=== PATIENT | female | born 1995 | race African-American/Black ===

== ENCOUNTER 2017-01-20 20:45 | Emergency (ER) | payer OTHER ==
[~2017-01-20] VITALS: Ht 165.1 cm; Wt 65.8 kg
--- NOTE | ~2017-01-20 | EKG ---
[address] [place] [address] ELECTROCARDIOGRAM REPORT Name: TON GARRISONNILDA Mahan [id number] Admission: 01/20/17 Attend Phys: Discharge: 01/20/17 Date of : [birth year] Report #: [id number] THIS REPORT FOR: //name// [facility] ED Test Date: 2017-01-20 Test Time: 21:49:04 Pat Name: NOMAN GARRISON Department: Room: Gender: F Yoke Presser: MZOOK : 1995 Requested By: Faith Zhu Order Number: [id number] MD: Tom Galeana Measurements Intervals [place] Rate: 93 P: 57 VA: 133 QRS: 9 QRSD: 95 T: 39 QT: 356 QTc: 443 Interpretive Statements Sinus rhythm RSR' in V1 or V2, right VCD or RVH Baseline wander in lead(s) V1 No previous ECG available for comparison Electronically Signed On 01-22-2017 7:41:46 CDT by Tom Galeana [email or web address] <ELECTRONICALLY SIGNED> By: Tom Galeana MD, [facility] 01/22/17 0741 [id number] 48 Tom Galeana MD, [facility] /EPI
[2017-01-20 21:32] LABS: URINE BILIRUBIN NEGATIVE (Negative); URINE BLOOD 1+ (Negative); URINE COLOR YELLOW; URINE GLUCOSE-RANDOM* 3+ (Negative); URINE KETONES NEGATIVE (Negative); URINE LEUKOCYTES-REFLEX 1+ (Negative); URINE PROTEIN (DIPSTICK) 1+ (Negative); URINE UROBILINOGEN 0.2 E.U./dl (0.2-1.0)
[2017-01-20 21:36] LABS: ABSOLUTE NEUTROPHILS 3.7 thou/uL (1.4-8.2); BASOPHILS 1.2 % (0.0-2.0); HEMATOCRIT 35.6 % (37.0-47.0); HEMOGLOBIN 12.2 gm/dL (12.0-15.0); LYMPHOCYTES 33.3 % (24.0-44.0); MCH 28.3 pg (26.0-34.0); MCHC 34.3 g/dL (28.0-37.0); MCV 82.6 fL (80.0-100.0); PLATELET COUNT 279 thou/uL (150-400); POLYS 54.5 % (36.0-66.0); RBC 4.31 mil/uL (4.20-5.00); RDW 12.5 % (10.5-14.5); WBC 6.7 thou/uL (4.0-11.0)
[2017-01-20 21:37] LABS: MANUAL DIFF NO
[2017-01-20 21:41] LABS: AMP/METHAMP Negative (Negative); BARBITURATES Negative (Negative); BENZODIAZEPINES Negative (Negative); CASTS None Seen /LPF (None Seen); COCAINE Negative (Negative); CRYSTALS None Seen /LPF (None Seen); METHADONE Negative (Negative); OPIATES Negative (Negative); PCP Negative (Negative); SQUAMOUS 4-10 Moderate /LPF (0-3); THC Negative (Negative)
[2017-01-20 21:42] LABS: URINE RBC 0-2 Rare /HPF (0-2); URINE WBC-REFLEX 0-5 Rare /HPF (0-5)
[2017-01-20 21:44] LABS: ANION GAP 6 mmol/L (7-16); BUN 7 mg/dL (7-18); CHLORIDE 101 mmol/L (98-107); CO2 28 mmol/L (21-32); CREATININE 0.8 mg/dL (0.6-1.0); GLUCOSE 223 mg/dL (74-106); POTASSIUM 4.1 mmol/L (3.5-5.1); SODIUM 135 mmol/L (136-145)
[2017-01-20 21:52] LABS: APTT 25.9 Seconds (24.5-32.8)
[2017-01-20 21:55] LABS: ALBUMIN 3.7 g/dL (3.4-5.0); ALKALINE PHOSPHATASE 128 U/L (46-116); NT-PRO BRAIN NAT PEPTIDE 23 pg/mL (<300); SGOT 9 U/L (15-37); SGPT 17 U/L (30-65); TOTAL BILIRUBIN 0.5 mg/dL (<0.1-1.0); TOTAL PROTEIN 7.4 g/dL (6.4-8.2); TROPONIN-I < 0.04 ng/mL (<0.04-0.07)
[2017-01-20] MEDS ORDERED: CLONIDINE0.1 PO (22:12)
[2017-01-20 22:32] VITALS: BP 137/95
== END 2017-01-20 22:40 | disposition home or self-care (01) ==
LOC: ER 20:45
PROVIDERS: Emergency Medicine
DX: I10 Essential (primary) hypertension (principal); R00.0 Tachycardia, unspecified; E10.8 Type 1 diabetes mellitus with unspecified complications

== ENCOUNTER 2018-02-11 12:16 | Emergency (ER) | payer OTHER ==
[~2018-02-11] VITALS: Ht 162.6 cm; Wt 69.4 kg
[~2018-02-11 12:16] MED LIST: CLONIDINE0.1 PO
[2018-02-11] MEDS ORDERED: HUMALOG100 UNIT/1 SUBQ (12:36)
[2018-02-11] MEDS ORDERED: LISINOPRIL10 MG PO (12:36)
[2018-02-11] MEDS ORDERED: LANTUS100 UNIT/M SUBQ (12:37)
[2018-02-11 13:26] LABS: ABSOLUTE NEUTROPHILS 5.2 thou/uL (1.4-8.2); BASOPHILS 0.9 % (0.0-2.0); EOSINOPHILS 1.8 % (0.0-3.0); HEMATOCRIT 28.3 % (37.0-47.0); LYMPHOCYTES 17.2 % (24.0-44.0); MCH 28.2 pg (26.0-34.0); MCHC 35.4 g/dL (28.0-37.0); MCV 79.8 fL (80.0-100.0); MONOCYTES 5.4 % (1.0-8.0); PLATELET COUNT 357 thou/uL (150-400); POLYS 74.7 % (36.0-66.0); RBC 3.54 mil/uL (4.20-5.00); RDW 12.3 % (10.5-14.5); WBC 6.9 thou/uL (4.0-11.0)
[2018-02-11 13:38] LABS: CALCIUM 9.2 mg/dL (8.5-10.1); CREATININE 1.6 mg/dL (0.6-1.0); POTASSIUM 4.4 mmol/L (3.5-5.1)
[2018-02-11 13:42] LABS: URINE BILIRUBIN NEGATIVE (Negative); URINE BLOOD 2+ (Negative); URINE CLARITY CLEAR; URINE COLOR YELLOW; URINE GLUCOSE-RANDOM* 3+ (Negative); URINE KETONES NEGATIVE (Negative); URINE LEUKOCYTES-REFLEX NEGATIVE (Negative); URINE NITRITE-REFLEX NEGATIVE (Negative); URINE PROTEIN (DIPSTICK) 2+ (Negative); URINE UROBILINOGEN 0.2 E.U./dl (0.2-1.0)
[2018-02-11 14:03] LABS: BACTERIA-REFLEX 1-9 Few /HPF (None Seen); CASTS None Seen /LPF (None Seen); CRYSTALS None Seen /LPF (None Seen); SQUAMOUS >10 Many /LPF (0-3); URINE RBC 3-10 Few /HPF (0-2)
[2018-02-11 14:04] LABS: URINE WBC-REFLEX None Seen /HPF (0-5)
[2018-02-11] MEDS ORDERED: ULTRAM 50MG TAB50 MG PO (14:11)
[2018-02-11] MEDS ORDERED: ZOFRAN ODT4 MG PO (14:20)
[2018-02-11 14:57] VITALS: BP 178/94
== END 2018-02-11 15:00 | disposition home or self-care (01) ==
LOC: ER 12:16
PROVIDERS: Emergency Medicine
DX: R10.9 Unspecified abdominal pain (principal); R11.2 Nausea with vomiting, unspecified; M54.5 Low back pain